=== PATIENT | female | born 1925 | race Caucasian/White ===

== ENCOUNTER 2016-11-20 02:29 | Emergency (ER) | payer MEDICARE, OTHER ==
--- NOTE | ~2016-11-20 | CT71 ---
[facility] A Service of [facility] RADIOLOGY TEXT RESULTS PATIENT: ABDOULAYE SANDOVAL LOCATION: [facility] : [birth year] UNIT #: [id number] AGE: [address]: Isaiah Pinedo MD SEX: F ORDER DR: [id number] [facility]. [place], [place] [address] [id number] MR#: [id number] Acc #: [id number] NAME: ABDOULAYE SANDOVAL : 1925 SEX: F STUDY DATE/TIME: 11/20/2016 3:12 UNIT: [facility] ROOM: STUDY DESCRIPTION: CT Head Wo Contrast Attending Physician: Isaiah Pinedo M.D. Ordering Physician: Isaiah Pinedo M.D. Primary Care Physician: Rubi Haile M.D. MEDICAL IMAGING REPORT This report is preliminary unless electronic signature is present EXAM CT head, noncontrast, 11/20/2016 HISTORY 89-year-old female in the ED after head injury. Fell out of bed prior to arrival. Confusion/mental status changes. TECHNIQUE CT examination of the head without IV contrast. This CT exam was performed with one or more of the following radiation dose reduction techniques: Automatic exposure control, adjustment of mA and/or kV according to patient size, and iterative reconstruction. FINDINGS No acute intracranial abnormality is identified. No visible skull fracture. Mild generalized cerebral atrophy. Mild diffuse low-attenuation white matter changes, nonspecific but likely related to chronic microvascular disease. Old left temporal lobe infarct. These changes are stable since the previous study of 06/24/2013. No evidence of intracranial hemorrhage, mass, mass effect, cerebral edema or progressive ventricular enlargement. IMPRESSION 1. No acute intracranial abnormality. No skull fracture. 2. Stable diffuse chronic changes as noted above. 3. No change since 06/24/2013. Dictated by... Kurtis Rudd M.D. [facility] A Service of [facility] RADIOLOGY TEXT RESULTS PATIENT: ABDOULAYE SANDOVAL LOCATION: [facility] : [birth year] UNIT #: [id number] AGE: [address]: Isaiah Pinedo MD SEX: F ORDER DR: THIS IS AN ELECTRONICALLY VERIFIED REPORT Kurtis Rudd M.D. at 11/20/2016 6:00 AM Francisco TD: 11/20/2016 03:52 JOB #: [id number] MEDICAL IMAGING REPORT Page 1 of 1 COPY
[~2016-11-20 02:29] MED LIST: ACTOS; ALLEGRA180 MG PO; ALPRAZOLAM PO; ALPRAZOLAM0.25 MG PO; AMIODARONE PO; AMLODIPINE BESY10 MG PO; AMOXICILLIN500 M1 PO; ASPIRIN325 M1 PO; ATIVAN0.5 M1 PO; ATIVAN0.5 MG DOB; ATROVENT HFA12.9 G1 IH; ATROVENT HFA12.9 G1 INH; AUGMENTIN PO; BONIVA150 MG; CITRATE OF MAG296 ML PO; CORDARONE200 M1 PO; COUMADIN3 MG PO; COUMADIN5 MG PO; COUMADIN6 MG PO; DEPAKOTE125 MG PO; DIOVAN160 MG PO; DONEPEZIL HCL10 MG PO; ESCITALOPRAM OX20 MG PO; FAMOTIDINE PO; FERREX 150 FOR1 EACH PO; GABAPENTIN300 M2 PO; GABAPENTIN300 MG PO; HCTZ PO; HYDRALAZINE HC100 MG PO; HYDRALAZINE HCL50 MG PO; IMDUR PO; IMDUR-ER30 MG PO; IPRAT-ALBUT 0.5-3 ML INH; IPRATROPIUM; ISOSORBIDE DINI30 MG PO; ISOSORBIDE MONO30 M1 PO; K-DUR20 ME2 PO; KCL PO; KEPPRA XR750 MG PO; KEPPRA500 M2 PO; KEPPRA750 M1 PO; KEPPRA750 MG PO; LASIX20 MG PO; LEVAQUIN250 MG PO; LEVAQUIN750 MG PO; LEVOTHYROXINE75 MCG PO; LEVOXYL100 MC1 PO; LEXAPRO PO; LEXAPRO20 MG PO; LISINOPRIL10 MG PO; LISINOPRIL30 MG; LOPERAMIDE HCL2 M1 PO; LORTAB 5-325 M1 EACH PO; MEDROL DOSEPAK4 MG; MEDROL DOSEPAK4 MG DOB; MEDROL DOSEPAK4 MG PO; METOPROLOL TAR25 MG PO; METOPROLOL TART25 MG PO; MILK OF MAGNESIA PO; MULTI VITAMIN1 EACH PO; NAMENDA XR14 MG PO; NASONEX17 GM; NEURONTIN100 MG PO; NEURONTIN300 MG PO; NORVASC PO; NORVASC10 MG PO; NORVASC2.5 MG PO; OCUVITE TABLET1 TA1 PO; OCUVITE TABLET1 TAB; PACERONE100 MG PO; PAIN RELIEVER500 M6 PO; PREMARIN; PRILOSEC PO; PRILOSEC20 MG PO; PRINIVIL10 MG PO; PROTONIX IV; PROTONIX PO; PROTONIX20 MG PO; REGLAN PO; RELAFEN500 MG PO; REMERON PO; RESTASIS32 EA OP; SYMBICORT; SYMBICORT INH; SYNTHROID PO; SYNTHROID0.2 MG PO; SYNTHROID125 PO; SYNTHROID175 MCG PO; SYNTHROID75 MCG PO; TOPROL XL PO; VICODIN 5/500 T1 TAB PO; VITAMIN D50000 UNIT PO; WARFARIN SODIUM3 M1 PO; XALATAN; XANAX0.5 MG PO; ZESTRIL30 MG PO; ZITHROMAX1 G/PKT PO
[2016-11-20 03:49] LABS: INR 2.4; PARTIAL THROMBOPLASTIN TIME 45.7 SECONDS (23.5-31.3); PROTHROMBIN TIME (PATIENT) 26.5 SECONDS (9.6-11.5)
[2017-04-21] MEDS ORDERED: LEVO-T200 MCG PO (04:56)
[2017-04-21] MEDS ORDERED: TIROSINT25 MCG PO (04:56)
[2017-04-21] MEDS ORDERED: MEDPASS PO (04:59)
[2017-04-21] MEDS ORDERED: HYDROCORTISONE30 G7 TOP (05:00)
== END 2016-11-20 04:50 | disposition home or self-care (01) ==
LOC: CED 02:29
PROVIDERS: Emergency Medicine
DX: S61.411A Laceration without foreign body of right hand, initial encounter (principal); I10 Essential (primary) hypertension; E11.9 Type 2 diabetes mellitus without complications; W06.XXXA Fall from bed, initial encounter; Y92.129 Unspecified place in nursing home as the place of occurrence of the external cause
CPT/HCPCS: 36415; 70450; 85610; 85730; 96372; 99284; J3486